=== PATIENT | female | born 1995 | race Caucasian/White ===

== ENCOUNTER 2020-02-21 08:53 | Emergency (ER) | payer SELFPAY ==
[~2020-02-21] VITALS: Ht 172.7 cm; Wt 106.6 kg
[2020-02-21] MEDS ORDERED: IPRATROPIUM BROMIDE 0.5 MG/2.5 ML NEBU NEB ONE (09:00)
[2020-02-21] MEDS ORDERED: ALBUTEROL SULFATE 2.5 MG/3 ML NEBU NEB ONE (09:00)
[2020-02-21] MEDS ORDERED: IPRATROPIUM BROMIDE 0.5 MG/2.5 ML NEBU ONE (09:04)
[2020-02-21] MEDS ORDERED: ALBUTEROL SULFATE 2.5 MG/3 ML NEBU ONE (09:04)
[2020-02-21] MEDS ORDERED: LORAZEPAM 1 MG TABLET ONE (09:06)
[2020-02-21] MEDS ORDERED: LORAZEPAM 0.5 MG TABLET PO ONE (09:15)
--- NOTE | 2020-02-21 10:05 | NUR ---
Patient discharged to home in stable condition. Written and verbal after care instructions given. Patient verbalizes understanding of instructions. Stressed follow up or return to ER for worsening s/s.pt says feels better, normal breathing. pt walks i nsteady gait.
[2020-02-21 10:06] VITALS: BP 121/51
== END 2020-02-21 10:07 | disposition home or self-care (01) ==
LOC: ER 08:53
DX: J45.909 Unspecified asthma, uncomplicated (principal); R06.4 Hyperventilation; F41.9 Anxiety disorder, unspecified
CPT/HCPCS: A4663; J3590